=== PATIENT | male | born 1995 | race African-American/Black ===

== ENCOUNTER 2021-06-02 02:31 | Inpatient (IN) | payer SELFPAY ==
[2021-06-02] VITALS (9 sets, daily range): BP systolic 117–145; BP diastolic 55–92; PULSE 50–80; RESP 15–22; TEMP 36.6–37.4; O2SAT 97–100; BMI 23.1
[2021-06-02 03:05] LABS: Add Urine Microscopic? NO; Charge for UA Resulting for Rev
[2021-06-02 03:07] LABS: Bilirubin Urine Neg (Negative); Blood Urine Neg (Negative); Glucose Urine UA Norm (Normal); Ketones Urine Negative (Negative); Leukocyte Esterase Urine Negative (Negative); Nitrate Urine Negative (Negative); Protein Urine Neg (Negative); Urine Appearance Clear (CLEAR); Urine Color Straw (Yellow); Urobilinogen Urine Norm (Negative); pH Urine 5 (5-7)
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
[2021-06-02 03:12] LABS: Basophils % 0.3 %; Hematocrit 43.6 % (42.0-52.0); Hemoglobin 14.1 g/dL (11.7-16.6); Lymphocytes # 0.9 10^3/uL (0.8-4.8); Lymphocytes % 12.6 %; Mean Corpuscular HGB Conc 32.3 g/dL (30.0-36.0); Mean Corpuscular Hemoglobin 29.6 pg (28.0-34.0); Mean Corpuscular Volume 91.6 fl (80-94); Mean Platelet Volume 10.4 fL (7.4-10.4); Monocytes # 0.3 10^3/uL (0.2-0.9); Neutrophils # 6.16 10^3/uL (1.8-7.7); Neutrophils % 82.8 %; Nucleated Red Blood Cells % 0 %; Platelet Count 183 10^3/cmm (130-400); Red Blood Count 4.76 10^6/uL (4.1-5.3); White Blood Count 7.4 10^3/uL (4.0-10.0)
[2021-06-02] MEDS: LORazepam 2 mg Tablet PO (03:15)
[2021-06-02 03:16] LABS: Amphetamines Screen Urine Negative (Negative); Barbiturates Screen Urine Negative (Negative); Benzodiazepines Screen Urine Negative (Negative); Cocaine Screen Urine Negative (Negative); Opiate Screen Urine Negative (Negative); PCP Screen Urine Negative (Negative); THC Screen Urine Positive (Negative)
[2021-06-02 03:29] LABS: Alanine Aminotransferase 12 U/L (0-41); Albumin Level 4.5 g/dL (3.5-5.2); Alcohol Level 31 mg/dL (0-10); Alkaline Phosphatase 60 IU/L (40-130); Anion Gap 16.2 (5-19); Aspartate Amino Transferase 17 U/L (0-40); Blood Urea Nitrogen 14 mg/dL (6-20); Calcium 9.6 mg/dL (8.5-10.5); Carbon Dioxide 23 mmol/L (22-29); Chloride 106 mmol/L (98-107); Glomerular Filtration Rate 122.5 mL/min (90-130); Glucose 95 mg/dL (65-115); Osmolality Calculated 292 mOsm/kg (285-295); Potassium 4.2 mmol/L (3.5-5.1); Sodium 141 mmol/L (136-145); Total Bilirubin 0.5 mg/dL (0.15-1.2); Total Protein 7.5 g/dL (6.6-8.7)
[2021-06-02] MEDS: LORazepam 2 mg/mL INJ 1 mL IVP (03:30)
[2021-06-02 03:31] LABS: Acetaminophen < 5.0 ug/mL (10-30)
--- NOTE | 2021-06-02 03:38 | ECG_ITS ---
[facility] Test Date: 2021-06-02 Pat Name: Jonh Arnold Department: Room: 151 Gender: Male [employer]: : 1995 Requested By: Manuel Chaudhry Order Number: [id number] Yesenia MD: Sukumar Katz M.D. Measurements Intervals [place] Rate: 60 P: 66 LA: 163 QRS: 60 QRSD: 92 T: 45 QT: 371 QTc: 372 Interpretive Statements SINUS RHYTHM WITH OCCASIONAL VENTRICULAR PREMATURE COMPLEXES No previous ECG available for comparison Electronically Signed On 06-02-2021 21:43:04 CDT by Sukumar Katz M.D. [email or web address]
[2021-06-02] MEDS: valproic acid 500 mg/5 mL SDV 1500 MG IV (03:45)
[2021-06-02] MEDS: sodium chloride 0.9% 500 ML 999 ML IV (03:46)
[2021-06-02] MEDS: sodium chloride 0.9% (100 ml) 100 ML (03:46)
[2021-06-02] MEDS: divalproex ER 500 mg Tablet (24H) 1000 MG PO (09:01)
--- NOTE | 2021-06-02 09:18 | PC.NURSE ---
PAIN ASSESSMENT 0600; CLIENTS PAIN ASSESSMENT WAS DUE AT 0600AM. CLIENT DID NOT ARRIVE ON THE UNIT UNTIL 0730AM. NOTIFIED STAFF IN THE ER THAT CLIENTS PAIN ASSESSMENT WAS DUE AT 0600AM. UNABLE TO DOCUMENT CLIENTS PAIN LEVEL AT 0600AM BECAUSE CLIENT WAS NOT UNDER MY CARE AT THAT TIME.
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
[2021-06-02] MEDS: hyDROXYzine 25 mg Capsule 50 MG PO (11:31)
--- NOTE | 2021-06-02 11:31 | PC.NURSE ---
PRN VISTARIL 50 MG GIVEN PO PER PT C/O STATED ANXIETY
[2021-06-02] MEDS: LORazepam 2 mg/mL INJ 1 mL (12:48)
--- NOTE | 2021-06-02 13:51 | PC.NURSE ---
admitted into room 106 from npu at 1330 after rapid response was called due to seizure.pt is a little drowsy. alert and oriented x 4.sr with occas pvc's on monitor.states has a hx of epilepsy and schizophrenia and has not been taking his medications for past 3 months.oriented to room environment.
[2021-06-02] MEDS: amoxicillin-clav 875-125 mg Tablet 1 TAB PO (14:14)
[2021-06-02] MEDS: acetaminophen 325 mg Tablet 650 MG PO (14:14)
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
[2021-06-02] MEDS: divalproex DR 500 mg Tablet 1000 MG PO (14:31)
[2021-06-02] MEDS: nicotine 2 mg Gum BUCCAL (14:31)
[2021-06-02] MEDS: LORazepam 2 mg/mL INJ 1 mL 1 MG IVP (14:32)
--- NOTE | 2021-06-02 18:36 | PC.NURSE ---
pt received 1 mg ativan iv for anxiety and has slept most of shift.no further seizure activity.
[2021-06-02] MEDS: OLANZapine 5 mg TABLET PO (20:56)
[2021-06-03] VITALS (33 sets, daily range): BP systolic 106–153; BP diastolic 55–84; PULSE 61–83; RESP 18–24; TEMP 36.6–37.1; O2SAT 99–100
--- NOTE | 2021-06-03 04:58 | PC.NURSE ---
Frequent safety and comfort rounds continue. Orders and/or nursing care completed as indicated. Patient monitored for response to intervention and treatment(s). Patient given ativan on previous shift and slept most of the night. Easily aroused Education provided includes medication compliance. Patient and/or outside sales representative verbalized understanding. Will continue to monitor.
[2021-06-03] MEDS: divalproex DR 500 mg Tablet 1000 MG PO ×2 (05:20→14:33)
[2021-06-03] MEDS: amoxicillin-clav 875-125 mg Tablet 1 TAB PO (08:46)
[2021-06-03] MEDS: LORazepam 2 mg/mL INJ 1 mL 1 MG IVP ×2 (08:55→14:54)
--- NOTE | 2021-06-03 09:10 | PC.PHAR ---
pt states he is taking no rx or otc medications-pt states he was taking olanzapine 10mg, divalproex 500mg, paxil 30mg and prazosin 2mg pt states he hasnt had these medication for 3 months-ext med history shows last filled 06/19/2020
--- NOTE | 2021-06-03 10:00 | PC.NURSE ---
Pt lying in bed resting and texting on cell phone. Pt behavior calm and cooperative. Pt had no c/o pain or discomfort at the present time. No needs voiced. Call light in reach. Will continue to monitor.
--- NOTE | 2021-06-03 15:24 | PC.NURSE ---
Pt reports IV catheter pulled out. J loop found in pts bed. New IV started in right forearm. 20 gauge, secured with venaguard. Flushed with 10ml NS. Pt stephen well.
--- NOTE | 2021-06-03 17:37 | P.PN_ITS ---
Subjective Subjective: Interval history: Patient was seen and examined this morning, no acute events overnight.Vitals reviewed.Am labs not done today. Medications: Reviewed: Yes Vitals/I&O/Wt Last Vital Signs Temp 98.5 F 06/03/21 17:00 Pulse 83 06/03/21 17:00 Resp 18 06/03/21 17:00 BP 153/84 06/03/21 17:00 Pulse Ox 99 06/03/21 17:00 06/03/21 06/03/21 06/03/21 06:59 14:59 22:59 Intake Total 0 / 0 0 / 0 Balance 0 / 0 0 / 0 Weight last 48 hrs Weight 79.379 kg Physical Exam Const: COMMON NORMALS: patient oriented x3 HENMT: COMMON NORMALS: normocephalic and atraumatic HEAD & SCALP: normocephalic and atraumatic Resp: COMMON NORMALS: clear to auscultation bilaterally AUSCULTATION: clear to auscultation bilaterally Cardio: COMMON NORMALS: regular rate, regular rhythm, S1 normal heart sound p resent, S2 normal heart sound present, No gallops present (Cardio), No murmurs present (Cardio), No rub (Cardio) and Peripheral pulses 2+ throughout RATE: regular rate RHYTHM: regular rhythm HEART SOUNDS: S1 normal heart sound present and S2 normal heart sound present PERIPHERAL PULSES: Peripheral pulses 2+ throughout GI: COMMON NORMALS: Normal to inspection, nondistended, normoactive bowel sounds present, Soft to palpation, non-tender, No hepatosplenomegaly present and no masses AUSCULTATION: Yes normoactive bowel sounds PALPATION: Yes Soft to palpation and Yes No hepatosplenomegaly present RECTAL EXAM: Yes deferred Extremity: COMMON NORMALS: no clubbing, cyanosis or edema and no pedal edema Neuro: COMMON NORMALS: patient oriented x3 Data : 06/02/21 03:08 06/02/21 03:08 A&P Assessment and plan (1) Grand mal seizure disorder: - Depakote 1000 mg q12 h daily -Ativan for breakthrough seizures -Aspiration precautions, seizure precautions Status: Acute (2) Anxiety and depression: -Continue his Zyprexa, he also takes -Plan to restart Lexapro -Currently denies suicidal ideation, denies homicidal ideation, does feel down depressed and sad, with feelings of hopelessness, but has good insight, good judgment, is not imminent threat to himself or others, is rational Status: Acute (3) Schizoaffective disorder: -Continue Zyprexa Status: Acute Attestations Medical Necessity Statement*: Per Primary Team. Coding Level of Care Code Acute Batch Unloader for [facility] Fwd Diagnoses Grand mal seizure disorder G40.409 Anxiety and depression F41.9; F32.9 Schizoaffective disorder F25.9
[2021-06-03] MEDS: hyDROXYzine 25 mg Capsule 50 MG PO (17:49)
--- NOTE | 2021-06-03 18:46 | P.PN_ITS ---
Subjective NPU Subjective: Interval history: I with the patient in his room. He says that he is still having suicidal thoughts minutes at a time thoughout the day. He does not feel he will act on them in the hospital, but is concerned that they would worsen at home. His mood is still depressed. We discussed the possibility of him returning to the neuropsychiatric unit. He feels that this will give him the support he needs to address the suicidal thoughts. Mental Status Exam MSE Comments: This is a well-nourished well-developed -Citizen [place] male with adequate grooming and limited eye contact. Laying on his side in bed on the cardiac care unit. No abnormal movements or tics noted. Some psychomotor retardation. Apathetic but cooperative with exam in no acute distress. Speech is normal rate and volume. Mood described as somewhat depressed, affect is bland. Thought process linear. Thought content: Patient describes some fleeting suicidal but not homicidal ideation. There were no delusions reported or noted. He reports a history of auditory hallucinations but none currently. No visual hallucinations Attention and concentration were impaired and memory was unreliable but none were formally tested. He is semi-alert and oriented x3. Insight and judgment appear limited and impulse control is impaired. Vitals/I&O/Wt Last Vital Signs Temp 98.3 F 06/03/21 19:34 Pulse 61 06/03/21 19:34 Resp 24 H 06/03/21 19:34 BP 106/55 06/03/21 19:34 Pulse Ox 100 06/03/21 19:34 06/03/21 06/03/21 06/03/21 06:59 14:59 22:59 Intake Total 0 / 0 0 / 0 Balance 0 / 0 0 / 0 Weight last 48 hrs Weight 79.379 kg Data NPU : 06/02/21 03:08 06/02/21 03:08 A&P Assessment and plan (1) Schizoaffective disorder: Status: Acute Qualifiers: Schizoaffective disorder type: depressive Qualified Code(s): F25.1 - Schizoaffective disorder, depressive type (2) Anxiety and depression: Status: Acute (3) Suicidal ideation: Status: Acute (4) Grand mal seizure disorder: Status: Acute (5) Cannabis abuse: Status: Acute (6) Alcohol use: Status: Acute Additional A&P Information Pt may transfer to the NPU for further psychiatric care when medically stable. Continue Zyprexa. Involuntary Hold Information 96 Hour Hold: 96 Hour Involuntary Admission: No Attestations NPU Medical Necessity Statement*: Per hospitalist. Coding Level of Care Code Acute Strand Galvanizer for [facility] Fwd Diagnoses Schizoaffective disorder F25.1 Schizoaffective disorder type: depressive Anxiety and depression F41.9; F32.9 Suicidal ideation R45.851 Grand mal seizure disorder G40.409 Cannabis abuse F12.10 Alcohol use Z72.89
[2021-06-04] VITALS (74 sets, daily range): BP systolic 106–130; BP diastolic 55–70; PULSE 65; RESP 14; O2SAT 99
[2021-06-04] MEDS: divalproex DR 500 mg Tablet 1000 MG PO (03:33)
--- NOTE | 2021-06-04 04:56 | PC.NURSE ---
Frequent safety and comfort rounds continue. Orders and/or nursing care completed as indicated. Patient monitored for response to intervention and treatment. Education provided includes medications etc. Patient and/or manufacturers representative verbalize understanding. Will continue to monitor.
[2021-06-04] MEDS: LORazepam 2 mg/mL INJ 1 mL 1 MG IVP (08:49)
--- NOTE | 2021-06-04 09:43 | PM.NPN ---
Subjective NPU Subjective: Interval history: I met with the patient for a few minutes this morning. He was ambivalent about coming to the psychiatric unit. At one point he said he was still having fleeting thoughts of suicide and might have trouble keeping himself safe. At another point he said that he would do better if he left the hospital and got started doing things he needs to do for the next phase of his life. He denied active suicidal intentions to kill himself. He has no command hallucinations, though he does hear voices when he sits quietly alone. This is his baseline level of functioning. The patient told me more about his recent history. His 's mother has told him he cannot come back to the apartment. If he tries, she will call the police and they will all get evicted. He says he is not sure why she is taking this action. We talked about where he might go next in life. He is thinking about moving back to [place]. He has no money currently, but feels that his parents or one of his siblings would give him money to get there. He has close friends he can connect with once there. His parents are in the process of moving from [place] to [place], and he had considered going to stay with them there. He is still going to think about that possibility. Mental Status Exam MSE Comments: This is a well-nourished well-developed -[place] male with adequate grooming and limited eye contact. Laying on his side in bed on the cardiac care unit. No abnormal movements or tics noted. He is restless today. He is more lively but more ambivalent. Still cooperative with exam in no acute distress. Speech is normal rate and volume. Mood described as somewhat okay, affect is bland. Thought process linear. Thought content: Patient describes some fleeting suicidal but not homicidal ideation. There were no delusions reported or noted. He reports auditory hallucinations when he is alone. No visual hallucinations Attention and concentration were improved and memory was better but none were formally tested. He is alert and oriented x3. Insight and judgment appear improved and impulse control is improved. Vitals/I&O/Wt Last Vital Signs Temp 98.3 F 06/03/21 19:34 Pulse 65 06/04/21 08:21 Resp 14 06/04/21 08:21 BP 130/70 06/04/21 08:21 Pulse Ox 99 06/04/21 08:21 06/03/21 06/04/21 06/04/21 22:59 06:59 14:59 Intake Total 0 / 0 Balance 0 / 0 Data NPU : 06/02/21 03:08 06/02/21 03:08 A&P Assessment and plan (1) Schizoaffective disorder: Status: Acute Qualifiers: Schizoaffective disorder type: depressive Qualified Code(s): F25.1 - Schizoaffective disorder, depressive type (2) Anxiety and depression: Status: Acute (3) Suicidal ideation: Status: Acute (4) Cannabis abuse: Status: Acute (5) Alcohol use: Status: Acute (6) Grand mal seizure disorder: Status: Acute Additional A&P Information I encouraged the patient to come to the Neuropsych Unit, because of my concern that he would decompensate without a clearly delineated and well thought through plan. He is considering that option, but also feels that he can make good decisions on his own. I do not feel that he would decompensate acutely should he leave the hospital. He also knows how to get himself back here, should he find himself in distress. Involuntary Hold Information 96 Hour Hold: 96 Hour Involuntary Admission: No Attestations NPU Medical Necessity Statement*: Per hospitalist Coding Level of Care Code Acute Safe Deposit Box Rental Clerk for [facility] Fw Diagnoses Schizoaffective disorder F25.1 Schizoaffective disorder type: depressive Anxiety and depression F41.9; F32.9 Suicidal ideation R45.851 Cannabis abuse F12.10 Alcohol use Z72.89 Grand mal seizure disorder G40.409
--- NOTE | 2021-06-04 11:05 | P.PN_ITS ---
Subjective Subjective: Interval history: Patient was seen and examined this morning, no acute events overnight.no fresh seizure episode. Medications: Reviewed: Yes Vitals/I&O/Wt Last Vital Signs Temp 98.3 F 06/03/21 19:34 Pulse 65 06/04/21 08:21 Resp 14 06/04/21 08:21 BP 130/70 06/04/21 08:21 Pulse Ox 99 06/04/21 08:21 06/03/21 06/04/21 06/04/21 22:59 06:59 14:59 Intake Total 0 / 0 Balance 0 / 0 Physical Exam Const: COMMON NORMALS: patient oriented x3 HENMT: COMMON NORMALS: normocephalic and atraumatic HEAD & SCALP: normocephalic and atraumatic Resp: COMMON NORMALS: clear to auscultation bilaterally AUSCULTATION: clear to auscultation bilaterally Cardio: COMMON NORMALS: regular rate, regular rhythm, S1 normal heart sound present, S2 normal heart sound present, No gallops present (Cardio), No murmurs present (Cardio), No rub (Cardio) and Peripheral pulses 2+ throughout RATE: regular rate RHYTHM: regular rhythm HEART SOUNDS: S1 normal heart sound present and S2 normal heart sound present PERIPHERAL PULSES: Peripheral pulses 2+ throughout GI: COMMON NORMALS: Normal to inspection, nondistended, normoactive bowel sounds present, Soft to palpation, non-tender, No hepatosplenomegaly present and no masses AUSCULTATION: Yes normoactive bowel sounds PALPATION: Yes Soft to palpation and Yes No hepatosplenomegaly present RECTAL EXAM: Yes deferred Extremity: COMMON NORMALS: no clubbing, cyanosis or edema and no pedal edema Neuro: COMMON NORMALS: patient oriented x3 Data : 06/02/21 03:08 06/02/21 03:08 A&P Assessment and plan (1) Grand mal seizure disorder: - Depakote 1000 mg q12 h daily -Ativan for breakthrough seizures -Aspiration precautions, seizure precautions Status: Acute (2) Anxiety and depression: -Continue his Zyprexa, he also takes -Plan to restart Lexapro -Currently denies suicidal ideation, denies homicidal ideation, does feel down depressed and sad, with feelings of hopelessness, but has good insight, good judgment, is not imminent threat to himself or others, is rational Status: Acute (3) Schizoaffective disorder: -Continue Zyprexa Status: Acute Qualifiers: Schizoaffective disorder type: depressive Qualified Code(s): F25.1 - Schizoaffective disorder, depressive type Attestations Medical Necessity Statement*: Per Primary team Coding Level of Care Code Acute Shell Freezing Machine Operator for [facility] Fw Diagnoses Grand mal seizure disorder G40.409 Anxiety and depression F41.9; F32.9 Schizoaffective disorder F25.1 Schizoaffective disorder type: depressive
[2021-06-04] MEDS: nicotine 2 mg Gum BUCCAL (11:06)
--- NOTE | 2021-06-04 13:12 | PC.NURSE ---
Pt signed AMA paper and left hospital. and notified.
--- NOTE | 2021-06-05 10:54 | PC.SOCIAL ---
attempted to call patient for hospital follow up call, patient answered, then the phone went blank. attempted to call patient back with no answer.
--- NOTE | 2021-06-05 14:05 | PC.SOCIAL ---
follow up call made. spoke with patient. policy writer gave patient information to see [facility]. policy writer let the patient know that they see walk ins [phone] on Tuesdays and . [facility]'s number was provided to patient.
== END 2021-06-04 13:10 | disposition left against medical advice (07) | DRG 101 ==
LOC: ER 05:05 → NP 08:33 → CSU 12:58
PROVIDERS: Admitting Provider Psychiatry & Neurology Psychiatry; Emergency Provider Emergency Medicine; Visit Provider Internal Medicine
DX: G40.409 Other generalized epilepsy and epileptic syndromes, not intractable, without status epilepticus (principal); R45.851 Suicidal ideations; F10.980 Alcohol use, unspecified with alcohol-induced anxiety disorder; F25.9 Schizoaffective disorder, unspecified; F32.9 Major depressive disorder, single episode, unspecified; F41.9 Anxiety disorder, unspecified; F12.180 Cannabis abuse with cannabis-induced anxiety disorder; Z66 Do not resuscitate; Z53.29 Procedure and treatment not carried out because of patient's decision for other reasons
CPT/HCPCS: 80053; 80306; 80307; 81003; 85025; 93005; 96374; 96375; 99285; J2060; J7040

== ENCOUNTER 2021-08-13 18:03 | Emergency (ER) | payer MEDICAID, SELFPAY ==
[2021-08-13] MEDS: LORazepam 2 mg/mL INJ 1 mL (18:15)
[2021-08-13 18:23] VITALS: BP 153/101; PULSE 93; RESP 18; TEMP 37.1; O2SAT 95; BMI 23.7
--- NOTE | 2021-08-13 18:26 | W.ED.SEIZURE ---
HPI - Seizure General: Chief Complaint: Seizure Stated Complaint: SEIZURE Time Seen by Provider: 08/13/21 18:19 Source: patient and EMS Mode of arrival: EMS Limitations: no limitations History of Present Illness: HPI Narrative: 25-year-old male has a long history of seizures states that he has been out of his Depakote for 2 weeks and is currently in senior care. Patient states he had a seizure today he had a supposed seizure here when he arrived by EMS it appeared to be a pseudoseizure as a stoplight told him to stop and he was just flopping around. Patient denies any headache he states that he has been out of his Depakote he denies any worsening improving factors. Associated symptoms: Deny chest pain, chills or fever(s) Review of Systems Const: Denies: fever(s), chills, body aches or change in appetite Eyes: Denies: blurry vision or eye discomfort ENMT: Denies: throat pain or dental pain Card: Denies: chest pain Resp: Denies: dyspnea GI: Denies: abdominal pain, nausea, vomiting or diarrhea : Denies: dysuria Musc: Denies: neck pain or back pain Skin/Breast: Denies: rash Neuro: Reports: seizure-like activity Psych: Denies: depression Tramaine/Lymph: Denies: easy bruising All/Imm: Denies: urticaria PFSH ED PFSH: Medical History Anxiety and depression Grand mal seizure disorder Rotator cuff arthropathy Schizoaffective disorder Social History Smoking and tobacco status: current every day smoker Alcohol intake: current Alcohol intake frequency: 0-2 Drinks per Day Physical Exam Const: COMMON NORMALS: no acute distress, patient oriented x3 and healthy appearing HENMT: COMMON NORMALS: normocephalic and atraumatic HEAD & SCALP: normocephalic and atraumatic Eye: COMMON NORMALS: Equal, round and reactive pupils present and EOMs intact bilaterally PUPIL: Yes Equal, round and reactive pupils present Neck/C-Spine: COMMON NORMALS: full ROM and supple Chest: COMMONS NORMALS: normal inspection of the chest and normal palpation of entire chest wall Resp: COMMON NORMALS: normal respiratory effort, No retractions, No use of accessory muscles and clear to auscultation bilaterally AUSCULTATION: clear to auscultation bilaterally Cardio: COMMON NORMALS: regular rate, regular rhythm and No murmurs present (Cardio) RATE: regular rate RHYTHM: regular rhythm GI: COMMON NORMALS: Normal to inspection, nondistended, normoactive bowel sounds present, Soft to palpation, non-tender and no masses PALPATION: Yes Soft to palpation Extremity: COMMON NORMALS: normal to inspection and full ROM Neuro: COMMON NORMALS: patient oriented x3, moves all extremities and no focal motor deficits Psych: COMMON NORMALS: mental status grossly normal, Normal thought process present and cooperative THOUGHT PROCESS: Normal thought process present Skin: COMMON NORMALS: no rashes or lesions noted and no wounds GENERAL SKIN EXAM: no rashes or lesions noted Course Vital Signs: Vital signs: Vital Signs Temperature 98.7 F 08/13/21 18:23 Pulse Rate 63 08/13/21 20:05 Respiratory Rate 16 08/13/21 20:05 Blood Pressure 136/65 08/13/21 20:05 Pulse Oximetry 95 08/13/21 20:05 MDM - Seizure MDM Narrative: Medical decision making narrative: Patient presents here with a seizure likely due to being out of his Depakote did load him with Depakote he has been seizure-free here he had a long history of seizures he does not need a CT scan of his head we will refill his Depakote for him he is discharged back into police custody Discharge Plan Discharge Patient Disposition: Home Clinical Impression: Generalized seizure Condition: Stable Prescriptions: New Depakote 500 mg tablet,delayed release (DR/EC) 500 mg PO BID Qty: 60 RF: 0 Discontinued divalproex 500 mg Tablet,Delayed Release (Dr/Ec) 1,000 mg PO Q12H 30 Days Qty: 120 RF: 3 Discharge Orders: Discharge ED (Routine); Ordered 08/13/21 Ordered By: Anjel Barkley Discharge Diet: Advance as tolerated Discharge Activity: Resume usual activity Patient Instructions: Recurrent Seizures in Adults (ED) Coding Level of Care Code ED Stationary Equipment Mechanic for Ashley Fwd Exam Comprehensive
[2021-08-13] MEDS: divalproex ER 500 mg Tablet (24H) 1000 MG PO (18:50)
[2021-08-13] MEDS: LORazepam 2 mg/mL INJ 1 mL 1 MG IVP (19:05)
--- NOTE | 2021-08-13 19:53 | PC.NURSE ---
at 1905 pt had another seizure DR gallardo notifed
[2021-08-13 20:05] VITALS: BP 136/65; PULSE 63; RESP 16; O2SAT 95
[2021-08-13 21:10] LABS: Valproic Acid Level 2.8 ug/mL (50-100)
== END 2021-08-13 20:07 | disposition home or self-care (01) ==
PROVIDERS: Emergency Provider Emergency Medicine
DX: G40.409 Other generalized epilepsy and epileptic syndromes, not intractable, without status epilepticus (principal); F17.210 Nicotine dependence, cigarettes, uncomplicated
CPT/HCPCS: 80164; 96374; 99283; J2060

== ENCOUNTER 2021-08-21 00:44 | Emergency (ER) | payer MEDICAID, SELFPAY ==
[2021-08-21 00:45] VITALS: BMI 23.1
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
--- NOTE | 2021-08-21 00:58 | XRR_ITS ---
PROCEDURE INFORMATION: Exam: XR Right Shoulder Exam date and time: 08/21/2021 12:58 AM Age: 26 years old Clinical indication: Pain; Shoulder; Right; Additional info: Pain, seizure, injury TECHNIQUE: Imaging protocol: XR Right shoulder. Views: 2 or more views. COMPARISON: No relevant prior studies available. FINDINGS: Bones/joints: No acute fracture or dislocation. Soft tissues: Normal. XR/XR shoulder RT min 2V* [id number] IMPRESSION: No acute fracture or dislocation.
[2021-08-21] MEDS: HYDROcodone-acetaminophen 5-325 mg Tablet 1 TAB PO (01:09)
[2021-08-21] MEDS: LORazepam 2 mg/mL INJ 1 mL 1 MG IVP (01:10)
[2021-08-21 01:30] LABS: Basophils % 0.3 %; Eosinophils # 0.1 10^3/uL (0.0-0.8); Eosinophils % 0.8 %; Hematocrit 41.8 % (42.0-52.0); Hemoglobin 13.9 g/dL (11.7-16.6); Lymphocytes # 2.8 10^3/uL (0.8-4.8); Lymphocytes % 46.1 %; Mean Corpuscular HGB Conc 33.3 g/dL (30.0-36.0); Mean Corpuscular Volume 90.1 fl (80-94); Mean Platelet Volume 10.5 fL (7.4-10.4); Monocytes # 0.5 10^3/uL (0.2-0.9); Monocytes % 8.2 %; Neutrophils # 2.69 10^3/uL (1.8-7.7); Neutrophils % 44.4 %; Nucleated Red Blood Cells % 0 %; Platelet Count 194 10^3/cmm (130-400); Red Blood Count 4.64 10^6/uL (4.1-5.3); White Blood Count 6.1 10^3/uL (4.0-10.0)
[2021-08-21 01:47] VITALS: BP 153/100; PULSE 83; RESP 21; O2SAT 97
[2021-08-21 02:03] LABS: Valproic Acid Level 68.4 ug/mL (50-100)
[2021-08-21 02:27] VITALS: BP 157/107; PULSE 82; RESP 12; O2SAT 99
== END 2021-08-21 02:29 | disposition home or self-care (01) ==
PROVIDERS: Emergency Provider Nurse Practitioner Family
DX: G40.909 Epilepsy, unspecified, not intractable, without status epilepticus (principal); S46.911A Strain of unspecified muscle, fascia and tendon at shoulder and upper arm level, right arm, initial encounter; F17.210 Nicotine dependence, cigarettes, uncomplicated; X58.XXXA Exposure to other specified factors, initial encounter
CPT/HCPCS: 73030; 80164; 85025; 96374; 99284; J2060

== ENCOUNTER 2021-08-29 21:51 | Emergency (ER) | payer MEDICAID, SELFPAY ==
--- NOTE | 2021-08-29 22:01 | W.ED.SEIZURE ---
HPI - Seizure General: Chief Complaint: Seizure Stated Complaint: SEIZURE Time Seen by Provider: 08/29/21 21:52 Source: patient and EMS Mode of arrival: EMS Limitations: no limitations History of Present Illness: HPI Narrative: 26-year-old male is here from group home has been here multiple times since being incarcerated for seizures he has a long seizure history takes Depakote for them supposed been taking Depakote at the group home. He also has questions of possible pseudoseizures. When patient first arrived here he was having an active seizure but never stopped breathing and once he woke up he had no postictal. Was able to give me a full history and remembered who I was from seen previously. Seizure History: Yes Associated symptoms: Deny chest pain, chills or fever(s) Review of Systems Const: Denies: fever(s), chills, body aches or change in appetite Eyes: Denies: blurry vision or eye discomfort ENMT: Denies: throat pain or dental pain Card: Denies: chest pain Resp: Denies: dyspnea GI: Denies: abdominal pain, nausea, vomiting or diarrhea : Denies: dysuria Musc: Denies: neck pain or back pain Skin/Breast: Denies: rash Neuro: Denies: headache(s) Psych: Denies: depression Tramaine/Lymph: Denies: easy bruising All/Imm: Denies: urticaria PFSH ED PFSH: Medical History Anxiety and depression Grand mal seizure disorder Rotator cuff arthropathy Schizoaffective disorder Social History Smoking and tobacco status: current every day smoker Alcohol intake: current Alcohol intake frequency: 0-2 Drinks per Day Physical Exam Const: COMMON NORMALS: no acute distress, patient oriented x3 and healthy appearing HENMT: COMMON NORMALS: normocephalic and atraumatic HEAD & SCALP: normocephalic and atraumatic Eye: COMMON NORMALS: Equal, round and reactive pupils present and EOMs intact bilaterally PUPIL: Yes Equal, round and reactive pupils present Neck/C-Spine: COMMON NORMALS: full ROM and supple Chest: COMMONS NORMALS: normal inspection of the chest and normal palpation of entire chest wall Resp: COMMON NORMALS: normal respiratory effort, No retractions, No use of accessory muscles and clear to auscultation bilaterally AUSCULTATION: clear to auscultation bilaterally Cardio: COMMON NORMALS: regular rate, regular rhythm and No murmurs present (Cardio) RATE: regular rate RHYTHM: regular rhythm GI: COMMON NORMALS: Normal to inspection, nondistended, normoactive bowel sounds present, Soft to palpation, non-tender and no masses PALPATION: Yes Soft to palpation Extremity: COMMON NORMALS: normal to inspection and full ROM Neuro: COMMON NORMALS: patient oriented x3, moves all extremities and no focal motor deficits Psych: COMMON NORMALS: mental status grossly normal, Normal thought process present and cooperative THOUGHT PROCESS: Normal thought process present Skin: COMMON NORMALS: no rashes or lesions noted and no wounds GENERAL SKIN EXAM: no rashes or lesions noted Course Vital Signs: Vital signs: Vital Signs Temperature 98.2 F 08/29/21 23:41 Pulse Rate 109 H 08/29/21 23:41 Respiratory Rate 16 08/29/21 23:41 Blood Pressure 137/86 08/29/21 23:41 Pulse Oximetry 100 08/29/21 23:41 MDM - Seizure MDM Narrative: Medical decision making narrative: Patient presents here with seizure but is mainly pseudoseizures he had multiple supposed seizures here and he wakes up immediately never stops breathing is able answer all the questions and has no postictal. Patient is well-appearing here he stable for discharge back into police custody work appears normal. Lab Data: Labs: Lab Results 08/29/21 08/29/21 22:19 22:19 Sodium 143 mmol/L mmol/L (136-145) Potassium 4.3 mmol/L mmol/L (3.5-5.1) Chloride 104 mmol/L mmol/L (98-107) Carbon Dioxide 23 mmol/L mmol/L (22-29) Anion Gap 20.3 H (5-19) BUN 12 mg/dL mg/dL (6-20) Creatinine 0.8 mg/dL mg/dL (0.7-1.2) GFR Calculation 139.3 mL/min H mL /min (90-130) Glucose 84 mg/dL mg/dL (65-115) Calculated Osmolal ity 295 mOsm/kg mOsm/ kg (285-295) Calcium 9.4 mg/dL mg/dL (8.5-10.5) Valproic Acid 54.1 ug/mL ug/mL (50-100) Discharge Plan Discharge Patient Disposition: Home Clinical Impression: Generalized seizure Condition: Stable Prescriptions: No Action Depakote 500 mg tablet,delayed release (DR/EC) 500 mg PO BID Qty: 60 RF: 0 Discharge Orders: Discharge ED (Routine); Ordered 08/29/21 Ordered By: Anjel Barkley Discharge Diet: Advance as tolerated Discharge Activity: Resume usual activity Patient Instructions: Recurrent Seizures in Adults (ED) Coding Level of Care Code ED Breaker Tender for Ashley Fwd Exam Comprehensive
[2021-08-29 22:04] VITALS: BP 138/98; PULSE 95; RESP 16; TEMP 36.6; O2SAT 98; BMI 22.4
[2021-08-29] MEDS: LORazepam 2 mg/mL INJ 1 mL IVP ×3 (22:10→23:38)
--- NOTE | 2021-08-29 22:15 | PC.NURSE ---
patient began seizing at approx 2208 . Provider notified and 2 mg Ativan given. Patient continually to seize . 2mg additional ativan given [address] Barkley. Patient stop seizing 2214. Patient in postictal state.
[2021-08-29 22:16] VITALS: BP 163/98; PULSE 107; RESP 16; O2SAT 99
[2021-08-29 22:50] LABS: Blood Urea Nitrogen 12 mg/dL (6-20); Calcium 9.4 mg/dL (8.5-10.5); Carbon Dioxide 23 mmol/L (22-29); Chloride 104 mmol/L (98-107); Glomerular Filtration Rate 139.3 mL/min (90-130); Glucose 84 mg/dL (65-115); Osmolality Calculated 295 mOsm/kg (285-295); Sodium 143 mmol/L (136-145)
[2021-08-29 22:53] LABS: Anion Gap 20.3 (5-19); Potassium 4.3 mmol/L (3.5-5.1)
[2021-08-29 23:19] LABS: Valproic Acid Level 54.1 ug/mL (50-100)
[2021-08-29] MEDS: divalproex DR 500 mg Tablet PO (23:38)
[2021-08-29 23:41] VITALS: BP 137/86; PULSE 109; RESP 16; TEMP 36.8; O2SAT 100
[2021-08-30] MEDS: diphenhydrAMINE 50 mg/mL SDV 1mL IM (01:01)
[2021-08-30] MEDS: haloperidol inj 5 mg/mL INJ 1 mL IM (01:02)
[2021-08-30 01:47] VITALS: BP 134/76; PULSE 76; RESP 16; TEMP 36.7; O2SAT 97
--- NOTE | 2021-08-30 01:47 | PC.NURSE ---
patient sleeping comfortablyin bed upon entry. patient aroused via verbal stimuli. DIscharge vitals obtained and charted. Discharge paperwork given to Dez. Patient in no obvious distress. No seizure like activity noted upon discharge.
[2021-08-30 01:48] VITALS: BP 131/76; PULSE 76; RESP 16; TEMP 36.7; O2SAT 97
== END 2021-08-30 01:50 | disposition home or self-care (01) ==
PROVIDERS: Emergency Provider Emergency Medicine
DX: G40.409 Other generalized epilepsy and epileptic syndromes, not intractable, without status epilepticus (principal); F17.210 Nicotine dependence, cigarettes, uncomplicated
CPT/HCPCS: 80048; 80164; 96372; 96374; 96376; 99284; J1200; J1630; J2060

== ENCOUNTER 2021-08-31 00:39 | Emergency (ER) | payer MEDICAID, SELFPAY ==
[2021-08-31 01:02] VITALS: BP 138/86; PULSE 78; RESP 16; TEMP 36.5; O2SAT 99; BMI 21.1
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
[2021-08-31] MEDS: haloperidol inj 5 mg/mL INJ 1 mL IM (01:42)
[2021-08-31] MEDS: divalproex ER 500 mg Tablet (24H) PO (01:43)
[2021-08-31] MEDS: LORazepam 2 mg/mL INJ 1 mL 1 MG IM (03:25)
--- NOTE | 2021-09-02 15:37 | DCPLANNER ---
woods manager had message to schedule a follow up appointment for patient with Dr. Morrison. woods manager emailed patients information to the neurology clinic. Patients information will be printed and reviewed. Clinic will call patient with appointment information.
--- NOTE | 2021-09-19 08:36 | DCPLANNER ---
apartment community assistant manager was contacted by Karen Anderson at the office of Dr. Morrison, informing business case analyst that clinic has tried to reach patient several times and has not been able to reach patient to schedule a follow up appointment.
== END 2021-08-31 05:06 | disposition home or self-care (01) ==
PROVIDERS: Emergency Provider Physician Assistant
DX: G40.909 Epilepsy, unspecified, not intractable, without status epilepticus (principal); F17.210 Nicotine dependence, cigarettes, uncomplicated
CPT/HCPCS: 70450; 96372; 99283; J1630; J2060

== ENCOUNTER 2021-09-01 23:49 | Emergency (ER) | payer MEDICAID, SELFPAY ==
[2021-09-01 23:58] VITALS: BP 133/83; PULSE 70; RESP 18; TEMP 36.9; O2SAT 100; BMI 23.7
--- NOTE | 2021-09-01 23:59 | W.ED.SEIZURE ---
Documented by User: LORETTA Aguirre 09/02/21 02:08 HPI - Seizure General: Chief Complaint: Seizure Stated Complaint: SEIZURE Time Seen by Provider: 09/01/21 23:59 History of Present Illness: HPI Narrative: 26-year-old male patient came in [facility] for concerns of seizure activity. Patient has possible seizure versus pseudoseizures. Patient was seen yesterday and was increased on his Depakote and started on some Zyprexa. Patient did not receive a dose of his Zyprexa today and only got 1 dose of his Depakote 1000 mg. Patient is alert and responds appropriately to questions. Patient reports some right shoulder discomfort 2. Seizure History: Yes Review of Systems General: Reports: 10 or more systems reviewed and unremarkable except in HPI and below Neuro: Reports: seizure-like activity PFS ED PFSH: Medical History Anxiety and depression Grand mal seizure disorder Rotator cuff arthropathy Schizoaffective disorder Social History Smoking and tobacco status: current every day smoker Alcohol intake: current Alcohol intake frequency: 0-2 Drinks per Day Physical Exam Const: COMMON NORMALS: no acute distress and patient oriented x3 GENERAL APPEARANCE: cooperative HENMT: COMMON NORMALS: normocephalic, TM's normal bilaterally and Normal external nose present HEAD & SCALP: normal to inspection and normocephalic NOSE: Normal external nose present TYMPANIC MEMBRANE: TM's normal bilaterally MOUTH: Normal oral and palatal mucosa present THROAT: posterior oropharynx normal Eye: GENERAL EYE: appearance normal, both eyes and all related structures Neck/C-Spine: COMMON NORMALS: full ROM Lymph: LYMPHATIC: no lymphadenopathy noted Chest: COMMONS NORMALS: normal inspection of the chest Resp: COMMON NORMALS: normal respiratory effort EFFORT & INSPECTION: Yes able to speak in complete sentences Cardio: COMMON NORMALS: regular rate and regular rhythm RATE: regular rate RHYTHM: regular rhythm GI: COMMON NORMALS: non-tender : COMMON NORMALS: Yes no CVA tenderness BLADDER/KIDNEY EXAM: Yes no CVA tenderness Back/Pelvis: COMMON NORMALS: no CVA tenderness and thoracic and lumbar spine normal to inspection Extremity: COMMON NORMALS: normal to inspection Neuro: COMMON NORMALS: patient oriented x3 and moves all extremities Psych: COMMON NORMALS: mental status grossly normal and cooperative Skin: COMMON NORMALS: no rashes or lesions noted GENERAL SKIN EXAM: no rashes or lesions noted Course ED course: 0100, patient had seizure-like activity again. I went in and started talking to the patient and the used cotton tip applicator to the cornea with positive reflex and patient aroused out of seizure immediately. Patient had no post ictal state. Tried to reassure patient that he is stressed due to the holiday and being in skilled nursing. Patient was given 2 mg of Ativan IV, along with 5 of Haldol. Vital Signs: Vital signs: Vital Signs Temperature 98.4 F 09/01/21 23:58 Pulse Rate 85 09/02/21 00:32 Respiratory Rate 14 09/02/21 00:32 Blood Pressure 133/93 09/02/21 00:32 Pulse Oximetry 100 09/02/21 00:32 MDM - Seizure MDM Narrative: Medical decision making narrative: Patient was brought in by EMS from the skilled nursing for concerns of seizure activity. On exam patient was alert and oriented and responds appropriately to questions. Patient did have 2 episodes of seizure-like activity that he recovered from immediately after cessation of shaking. One episode was ceased on my evaluation of corneal reflex. Vital signs were normal. No signs of injury was noted. Differential diagnosis includes but not limited to seizure disorder, pseudoseizures, anxiety, malingering. Patient was treated with 2 mg Ativan and 10 mg of Zyprexa. This ceased the seizures patient had improvement in symptoms. Laboratory values were unremarkable. Patient was discharged back to skilled nursing encouraged to follow-up with primary care or specialist. Patient had not got his Zyprexa today at the skilled nursing which has been ordered yesterday. And patient only got half the dose of Depakote. This may have contributed patient's seizure activity. Lab Data: Labs: Lab Results 09/02/21 00:21 WBC 5.8 10^3/uL 10^3/ uL (4.0-10.0) RBC 5.15 10^6/uL 10^6 /uL (4.1-5.3) Hgb 15.6 g/dL g/dL (11.7-16.6) Hct 48.5 % % (42.0-52.0) MCV 94.2 fl H fl (80-94) MCH 30.3 pg pg (28.0-34.0) MCHC 32.2 g/dL g/dL (30.0-36.0) RDW 13.2 % % (12.1-15.1) Plt Count 153 10^3/cmm 10^3 /cmm (130-400) MPV 11.8 fL H fL (7.4-10.4) Neut % (Auto) 41.7 % % Lymph % (Auto) 46.4 % % [place] % (Auto) 8.8 % % Eos % (Auto) 1.2 % % Baso % (Auto) 0.9 % % Neut # (Auto) 2.43 10^3/uL 10^3 /uL (1.8-7.7) Lymph # (Auto) 2.7 10^3/uL 10^3/ uL (0.8-4.8) [place] # (Auto) 0.5 10^3/uL 10^3/ uL (0.2-0.9) Eos # (Auto) 0.1 10^3/uL 10^3/ uL (0.0-0.8) Baso # (Auto) 0.1 10^3/uL 10^3/ uL (0.0-0.1) Nucleated RBC % (a uto) 0 % % Nucleated RBCs # 0.0 /100WBC /100W BC Discharge Plan Discharge Patient Disposition: Home Clinical Impression: Seizure disorder Schizoaffective disorder Qualifiers: Schizoaffective disorder type: unspecified Qualified Code(s): F25.9 - Schizoaffective disorder, unspecified Pain in right shoulder Qualifiers: Chronicity: unspecified Qualified Code(s): M25.511 - Pain in right shoulder Condition: Stable Prescriptions: New diclofenac sodium 75 mg tablet,delayed release (DR/EC) 75 mg PO BID Qty: 20 RF: 0 No Action Depakote 500 mg tablet,delayed release (DR/EC) 500 mg PO BID Qty: 60 RF: 0 Depakote 500 mg tablet,delayed release (DR/EC) 1,000 mg PO BID Qty: 60 RF: 0 Zyprexa 5 mg tablet 5 mg PO DAILY Qty: 20 RF: 0 Discharge Orders: Discharge ED (Routine); Ordered 09/02/21 Ordered By: Koffi England Discharge Diet: Usual diet Discharge Activity: Increase activity as tolerated Patient Instructions: Nonepileptic Seizures (ED) Activity Restrictions/Additional Instructions: Continue with routine medications as directed. Follow-up with primary care or specialist for further evaluation and treatment. Return to the ER for new concerns. Coding Level of Care Code ED Pegger D[employer] Looms for Chg Fwd Exam Comprehensive Documented by User: Manuel Ramirez DO 09/02/21 02:11 HPI - Seizure General: Chief Complaint: Seizure Stated Complaint: SEIZURE Time Seen by Provider: 09/01/21 23:59 PFSH ED PFSH: Medical History Anxiety and depression Grand mal seizure disorder Rotator cuff arthropathy Schizoaffective disorder Social History Smoking and tobacco status: current every day smoker Alcohol intake: current Alcohol intake frequency: 0-2 Drinks per Day Course Vital Signs: Vital signs: Vital Signs Temperature 98.4 F 09/01/21 23:58 Pulse Rate 85 09/02/21 00:32 Respiratory Rate 14 09/02/21 00:32 Blood Pressure 133/93 09/02/21 00:32 Pulse Oximetry 100 09/02/21 00:32 MDM - Seizure MDM Narrative: Medical decision making narrative: This patient was originally seen by LORETTA Mehta. I agree with his history, evaluation, and treatment. Lab Data: Labs: Lab Results 09/02/21 00:21 WBC 5.8 10^3/uL 10^3/ uL (4.0-10.0) RBC 5.15 10^6/uL 10^6 /uL (4.1-5.3) Hgb 15.6 g/dL g/dL (11.7-16.6) Hct 48.5 % % (42.0-52.0) MCV 94.2 fl H fl (80-94) MCH 30.3 pg pg (28.0-34.0) MCHC 32.2 g/dL g/dL (30.0-36.0) RDW 13.2 % % (12.1-15.1) Plt Count 153 10^3/cmm 10^3 /cmm (130-400) MPV 11.8 fL H fL (7.4-10.4) Neut % (Auto) 41.7 % % Lymph % (Auto) 46.4 % % [place] % (Auto) 8.8 % % Eos % (Auto) 1.2 % % Baso % (Auto) 0.9 % % Neut # (Auto) 2.43 10^3/uL 10^3 /uL (1.8-7.7) Lymph # (Auto) 2.7 10^3/uL 10^3/ uL (0.8-4.8) [place] # (Auto) 0.5 10^3/uL 10^3/ uL (0.2-0.9) Eos # (Auto) 0.1 10^3/uL 10^3/ uL (0.0-0.8) Baso # (Auto) 0.1 10^3/uL 10^3/ uL (0.0-0.1) Nucleated RBC % (a uto) 0 % % Nucleated RBCs # 0.0 /100WBC /100W BC Discharge Plan Discharge Patient Disposition: Home Clinical Impression: Seizure disorder Schizoaffective disorder Qualifiers: Schizoaffective disorder type: unspecified Qualified Code(s): F25.9 - Schizoaffective disorder, unspecified Pain in right shoulder Qualifiers: Chronicity: unspecified Qualified Code(s): M25.511 - Pain in right shoulder Condition: Stable Prescriptions: New diclofenac sodium 75 mg tablet,delayed release (DR/EC) 75 mg PO BID Qty: 20 RF: 0 No Action Depakote 500 mg tablet,delayed release (DR/EC) 500 mg PO BID Qty: 60 RF: 0 Depakote 500 mg tablet,delayed release (DR/EC) 1,000 mg PO BID Qty: 60 RF: 0 Zyprexa 5 mg tablet 5 mg PO DAILY Qty: 20 RF: 0 Discharge Orders: Discharge ED (Routine); Ordered 09/02/21 Ordered By: Koffi England Discharge Diet: Usual diet Discharge Activity: Increase activity as tolerated Patient Instructions: Nonepileptic Seizures (ED) Activity Restrictions/Additional Instructions: Continue with routine medications as directed. Follow-up with primary care or specialist for further evaluation and treatment. Return to the ER for new concerns. Coding Level of Care Code ED Pegger D[employer] Looms for Ashley Fwd Exam Comprehensive
--- NOTE | 2021-09-02 00:07 | XRR_ITS ---
PROCEDURE INFORMATION: Exam: XR Right Shoulder Exam date and time: 09/02/2021 12:07 AM Age: 26 years old Clinical indication: Injury or trauma; Fall; Blunt trauma (contusions or hematomas); Shoulder; Right; Additional info: Pain TECHNIQUE: Imaging protocol: XR Right shoulder. Views: 2 or more views. COMPARISON: CR (CHEST, ) 08/21/2021 1:04 AM FINDINGS: Bones/joints: Normal. Soft tissues: Normal. XR/XR shoulder RT min 2V* [id number] IMPRESSION: No acute findings.
[2021-09-02] MEDS: LORazepam 2 mg/mL INJ 1 mL IVP (00:10)
[2021-09-02] MEDS: ondansetron 2 mg/ML SDV 2 mL 4 MG IVP (00:29)
[2021-09-02] MEDS: OLANZapine 10 mg TABLET PO ×2 (00:29→02:30)
[2021-09-02 00:30] LABS: Basophils # 0.1 10^3/uL (0.0-0.1); Basophils % 0.9 %; Eosinophils # 0.1 10^3/uL (0.0-0.8); Eosinophils % 1.2 %; Hematocrit 48.5 % (42.0-52.0); Hemoglobin 15.6 g/dL (11.7-16.6); Lymphocytes # 2.7 10^3/uL (0.8-4.8); Lymphocytes % 46.4 %; Mean Corpuscular HGB Conc 32.2 g/dL (30.0-36.0); Mean Corpuscular Hemoglobin 30.3 pg (28.0-34.0); Mean Corpuscular Volume 94.2 fl (80-94); Mean Platelet Volume 11.8 fL (7.4-10.4); Monocytes # 0.5 10^3/uL (0.2-0.9); Monocytes % 8.8 %; Neutrophils # 2.43 10^3/uL (1.8-7.7); Neutrophils % 41.7 %; Nucleated Red Blood Cells % 0 %; Platelet Count 153 10^3/cmm (130-400); Red Blood Count 5.15 10^6/uL (4.1-5.3); Red Cell Distribution Width 13.2 % (12.1-15.1); White Blood Count 5.8 10^3/uL (4.0-10.0)
[2021-09-02 00:32] VITALS: BP 133/93; PULSE 85; RESP 14; O2SAT 100
[2021-09-02] MEDS: ketorolac 30 mg/mL INJ 15 MG IVP (02:31)
[2021-09-02 02:57] VITALS: BP 124/84; PULSE 61; RESP 21; O2SAT 100
== END 2021-09-02 03:00 | disposition home or self-care (01) ==
PROVIDERS: Emergency Provider Nurse Practitioner Family
DX: G40.909 Epilepsy, unspecified, not intractable, without status epilepticus (principal); F25.9 Schizoaffective disorder, unspecified; M25.511 Pain in right shoulder; F17.210 Nicotine dependence, cigarettes, uncomplicated
CPT/HCPCS: 73030; 85025; 96374; 96375; 99284; J1885; J2060; J2405

== ENCOUNTER 2021-09-07 23:41 | Emergency (ER) | payer MEDICAID, SELFPAY ==
[2021-09-07 23:42] VITALS: BP 127/83; PULSE 68; RESP 18; O2SAT 100; BMI 23.7
--- NOTE | 2021-09-07 23:53 | W.ED.SEIZURE ---
HPI - Seizure General: Chief Complaint: Seizure Stated Complaint: SEIZURES Time Seen by Provider: 09/07/21 23:46 History of Present Illness: HPI Narrative: Patient is a 26-year-old male that comes to the ED from group home after having a seizure there. Patient has been here in the ED approximately 4-5 times over the last month for same complaint. He also said patient had a seizure that lasted about 20 minutes. They said he fell and hit his head before the seizure occurred. While in the EMS he did have 1 small seizure that was witnessed by EMS staff. Here in the ED patient appears in post ictal state. Patient is alert but does appear in post ictal state. He will answer my questions accordingly. States that he just feels really tired and has little headache. Unsure if he fell and hit head. Patient was given 2000 mg of Depakote by the group home today. They have not been able to give him his Zyprexa they are at the group home because they do not have any currently. Seizure History: Yes Associated symptoms: Deny chest pain, chills or fever(s) Review of Systems Const: Reports: fatigue (post-ictal state); Denies: fever(s) or chills Eyes: Denies: change in vision or eye discomfort ENMT: Denies: throat pain, odynophagia, nasal discharge or nasal congestion Card: Denies: chest pain, palpitations, edema, swelling of feet/ankles, dyspnea on exertion or orthopnea Resp: Denies: dyspnea, productive cough or non-productive cough GI: Denies: abdominal pain, nausea, vomiting, diarrhea, constipation or hematochezia : Denies: flank pain, difficulty urinating, dysuria or hematuria Musc: Denies: neck pain, back pain or extremity swelling Skin/Breast: Denies: rash or new lesions Neuro: Reports: seizure-like activity; Denies: headache(s), numbness in extremities or weakness in extremities PFS ED PFSH: Medical History Anxiety and depression Grand mal seizure disorder Rotator cuff arthropathy Schizoaffective disorder Social History Smoking and tobacco status: current every day smoker Alcohol intake: current Alcohol intake frequency: 0-2 Drinks per Day Physical Exam Const: COMMON NORMALS: no acute distress, patient oriented x3, healthy appearing and alert GENERAL APPEARANCE: cooperative and comfortable HENMT: COMMON NORMALS: normocephalic HEAD & SCALP: normocephalic MOUTH: Normal oral and palatal mucosa present THROAT: posterior oropharynx normal and uvula midline Neck/C-Spine: COMMON NORMALS: supple GENERAL: Yes normal visual inspection Resp: COMMON NORMALS: normal respiratory effort, No retractions, No use of accessory muscles and clear to auscultation bilaterally AUSCULTATION: clear to auscultation bilaterally Cardio: COMMON NORMALS: regular rate, regular rhythm, S1 normal heart sound present, S2 normal heart sound present, No gallops present (Cardio), No clicks present (Cardio), No murmurs present (Cardio) and Peripheral pulses 2+ throughout RATE: regular rate RHYTHM: regular rhythm HEART SOUNDS: S1 normal heart sound present and S2 normal heart sound present PERIPHERAL PULSES: Peripheral pulses 2+ throughout GI: COMMON NORMALS: Normal to inspection, nondistended, normoactive bowel sounds present, Soft to palpation, non-tender and no masses PALPATION: Yes Soft to palpation : COMMON NORMALS: Yes no CVA tenderness BLADDER/KIDNEY EXAM: Yes no CVA tenderness Back/Pelvis: COMMON NORMALS: no CVA tenderness Extremity: COMMON NORMALS: normal to inspection Neuro: COMMON NORMALS: patient oriented x3, CN's II-XII intact bilaterally, moves all extremities and no focal motor deficits SENSORIUM/ORIENTATION: Yes alert SPEECH: speech normal Skin: GENERAL SKIN EXAM: dry skin Course Reevaluation(s): Reevaluation #1: Went in and reevaluated patient after CT scan. Neuro exam was normal and no deficits noted. He is up and alert and eating some food. he said that case management has been in touch with him about getting an appointment set up with neurology for follow-up. I told him about CT scan results showing no acute findings. Patient understood and said he will follow up with neurology at his scheduled appointment. Time: 02:40 Vital Signs: Vital signs: Vital Signs Pulse Rate 68 09/07/21 23:42 Respiratory Rate 18 09/07/21 23:42 Blood Pressure 127/83 09/07/21 23:42 Pulse Oximetry 100 09/07/21 23:42 MDM - Seizure MDM Narrative: Medical decision making narrative: Patient is a 26-year-old male comes to the ED with seizure activity. Long-Term staff said patient hit his head first and then had some seizure-like activity that lasted for almost 20 minutes. Patient currently takes Depakote and is in the process of getting his Zyprexa prescription filled while in the group home. Here in the ED patient was given some Ativan to help with seizures. He had another episode of seizure here in the ED that was short and only lasted about a minute. I then gave patient dose of Tylenol and Benadryl and he was able to do a CT of head. CT of head showed no acute findings. Neuro exam was normal and no deficits noted. He said that case management has been in touch with him about getting an appointment set up with neurology for follow-up. Patient told to continue taking his previously prescribed medications. Return to ED precautions given. Patient understood and agreed with plan. Medical Records: Attestation: I reviewed the patient's medical records. Medical records narrative: Reviewing patient's previous ED visits he has a history of pseudoseizures along with an actual seizure disorder. He is currently on Depakote and Zyprexa. Imaging Data^: CT Head: Attestation: I personally reviewed and interpreted this imaging study as follows: Radiologist's impression: [address] [address] [address] Scan Report Signed Patient: Hillary Arnold Unit #: [id number] : 1995 Age/Sex: 26 / M ADM Date: 09/07/21 Loc: ER Room/Bed: Attending Dr: Ordering Provider/Ordering MD: Isidoro Mayes Date of Service: 09/07/21 Procedure(s): CT head wo con* [id number] Accession Number(s): [id number] Report Number: [id number] PROCEDURE INFORMATION: Exam: CT Head Without Contrast Exam date and time: 09/07/2021 11:52 PM Age: 26 years old Clinical indication: Injury or trauma; Fall; Blunt trauma (contusions or hematomas); Patient HX: Patient had seizure and fell sustaining blow to head on concrete floor. Lethargic. History of seizure disorder. ; Additional info: Fell and hit head, seizure TECHNIQUE: Imaging protocol: Computed tomography of the head without contrast. Radiation optimization: All CT scans at this facility use at least one of these dose optimization techniques: automated exposure control; mA and/or kV adjustment per patient size (includes targeted exams where dose is matched to clinical indication); or iterative reconstruction. COMPARISON: CT head wo con* [id number] 08/31/2021 1:31 AM RADIATION DOSE METRICS: Total DLP (mGy-cm): 980.27 FINDINGS: Brain: No acute infarct or hemorrhage. Cerebral ventricles: No ventriculomegaly. Paranasal sinuses: Paranasal sinuses are clear. No air-fluid level. Mastoid air cells: Visualized mastoid air cells are clear. Bones/joints: No calvarial or skull base fracture. Soft tissues: Unremarkable. CT/CT head wo con* [id number] IMPRESSION: 1. No calvarial or skull base fracture. 2. No acute infarct or hemorrhage. Dictated By: Tristin Marie Signed By: Tristin Marie Signed Date/Time: 09/08/21229 DD/ 195 Discharge Plan Discharge Patient Disposition: Home Clinical Impression: Seizure disorder Condition: Stable Prescriptions: No Action Depakote 500 mg tablet,delayed release (DR/EC) 500 mg PO BID Qty: 60 RF: 0 Depakote 500 mg tablet,delayed release (DR/EC) 1,000 mg PO BID Qty: 60 RF: 0 Zyprexa 5 mg tablet 5 mg PO DAILY Qty: 20 RF: 0 diclofenac sodium 75 mg tablet,delayed release (DR/EC) 75 mg PO BID Qty: 20 RF: 0 Discharge Orders: Discharge ED (Routine); Ordered 09/08/21 Ordered By: Isidoro Mayes Discharge Diet: Regular Discharge Activity: Increase activity as tolerated Patient Instructions: Epilepsy (ED) Activity Restrictions/Additional Instructions: Follow-up with medical provider as directed. Continue taking all previously prescribed medications. Case management should be contacting you in the next several days set up an appointment with neurology. Return to the ER or your medical provider if condition worsens. Please read and understand discharge instructions. Thank you for choosing [facility] for your healthcare needs today. Please realize this is an emergency room and that we are providing you with a medical screening exam and this may not be complete and all inclusive of all the testing and or work up that you may need to determine your ailment or severity of your illness. It is very important that you follow up as instructed or that you return to the Emergency Department should you have concerns or if your condition changes or worsens in any way. Coding Level of Care Code ED Solid Waste Facility Operator for Ashley Aguilera Exam Comprehensive
[2021-09-08] MEDS: LORazepam 2 mg/mL INJ 1 mL IM
[2021-09-08] MEDS: diphenhydrAMINE 50 mg/mL SDV 1mL IM (00:45)
[2021-09-08] MEDS: haloperidol inj 5 mg/mL INJ 1 mL IM (00:45)
[2021-09-08 03:23] VITALS: BP 106/70; PULSE 53; RESP 14; O2SAT 98
--- NOTE | 2021-09-09 17:30 | DCPLANNER ---
Addendum entered by Lexie Rose 09/20/21 06:21: front end manager was contacted by the office of Dr. Morrison stating that the clinic has tried to reach patient several times, and has not been able to reach patient to schedule an appointment. Original Note: front end manager had message to schedule a follow up appointment for patient with neurology. front end manager emailed patients information to the neurology clinic. Patients information will be printed and reviewed. Clinic will call patient with appointment information.
== END 2021-09-08 03:26 | disposition home or self-care (01) ==
PROVIDERS: Emergency Provider Physician Assistant
DX: G40.909 Epilepsy, unspecified, not intractable, without status epilepticus (principal); F17.210 Nicotine dependence, cigarettes, uncomplicated
CPT/HCPCS: 70450; 96372; 99283; J1200; J1630; J2060

== ENCOUNTER 2021-09-26 15:16 | Emergency (ER) | payer MEDICAID, SELFPAY ==
[2021-09-26 15:39] VITALS: BP 142/93; PULSE 64; RESP 16; TEMP 36.9; O2SAT 100; BMI 22.4
--- NOTE | 2021-09-26 16:00 | ECG_ITS ---
[facility] Test Date: 2021-09-26 Pat Name: Hillary Arnold Department: Room: Gender: Male Net Repairer: : 1995 Requested By: Je Cotto Order Number: [id number] Yesenia MD: Ramonita Stokes M.D. Measurements Intervals [place] Rate: 74 P: 63 [place]: 147 QRS: 60 QRSD: 90 T: 34 QT: 339 QTc: 376 Interpretive Statements SINUS RHYTHM Compared to ECG 06/02/2021 03:33:11 Ventricular premature complex(es) no longer present Electronically Signed On 09-26-2021 19:09:25 ART PSYCHOTHERAPIST by Ramonita Stokes M.D. [email or web address]
--- NOTE | 2021-09-26 16:02 | ED_ITS ---
HPI - Seizure General: Chief Complaint: Seizure Stated Complaint: SEIZURE Time Seen by Provider: 09/26/21 15:45 Source: patient and EMS Mode of arrival: EMS Limitations: no limitations History of Present Illness: HPI Narrative: Patient states that he was told he had seizures starting last night intermittently through the evening and in the early this morning. Patient reportedly was given approximately 2000 mg of Depakote last night by caretakers. See nursing assessment. Patient states that he aches all over but denies any particular head injury or headache. See previous ER visit from 3 weeks ago. Patient had negative CT scan of the brain at that time. Patient presently on Depakote at 1000 mg each morning and 1500 mg each evening regularly. He takes no other antiseizure medication. He is allergic to Keppra. Patient states his seizures are usually stress-induced but he noticed no triggers yesterday that would have caused the seizures to recur. He states he was not under stress yesterday. complaint: seizure Description of Episode: loss of consciousness and tonic-clonic movement Witnessed: Yes - by Bystander Trauma: No Seizure History: Yes Place: correction Possible Precipitating Event: none Associated symptoms: Reports other (myalgias); Deny chest pain, chills, confusion, cough, diaphoresis, fever(s), anorexia, malaise, rash, short of breath, syncope or weakness Treatments prior to arrival: none Review of Systems Const: Denies: fever(s), chills, malaise or diaphoresis Eyes: Denies: change in vision ENMT: Denies: throat pain Card: Denies: chest pain or syncope Resp: Denies: dyspnea or wheezing GI: Denies: abdominal pain, nausea or vomiting : Denies: flank pain Musc: Denies: neck pain or back pain Skin/Breast: Denies: rash or pruritus Neuro: Reports: other (Seizures, no memory of seizures); Denies: confusion Psych: Denies: anxiety or depression Tramaine/Lymph: Denies: enlarged lymph nodes [facility] ED PFSH: Medical History Anxiety and depression Grand mal seizure disorder Rotator cuff arthropathy Schizoaffective disorder Social History Smoking and tobacco status: current every day smoker Alcohol intake: current Alcohol intake frequency: 0-2 Drinks per Day Physical Exam Const: COMMON NORMALS: no acute distress, average body habitus, patient oriented x3, no limitations, healthy appearing, alert and well nourished GENERAL APPEARANCE: cooperative OTHER: Speech is clear. No focal deficits. HENMT: COMMON NORMALS: normocephalic and atraumatic HEAD & SCALP: normocephalic and atraumatic FACE & SINUS: normal facial exam Eye: COMMON NORMALS: EOMs intact bilaterally Neck/C-Spine: COMMON NORMALS: full ROM, no lymphadenopathy, supple and no meningeal signs GENERAL: Yes normal visual inspection Lymph: LYMPHATIC: no lymphadenopathy noted Chest: COMMONS NORMALS: normal inspection of the chest and normal palpation of entire chest wall CHEST: No Ecchymosis present and No rash Resp: COMMON NORMALS: normal respiratory effort, No retractions and clear to auscultation bilaterally EFFORT & INSPECTION: No respiratory distress AUSCULTATION: clear to auscultation bilaterally Cardio: COMMON NORMALS: regular rate, regular rhythm and Peripheral pulses 2+ throughout JUGULAR VENOUS DISTENTION: no JVD RATE: regular rate RHYTHM: regular rhythm PERIPHERAL PULSES: Peripheral pulses 2+ throughout GI: COMMON NORMALS: Normal to inspection, nondistended, normoactive bowel sounds present and non-tender : COMMON NORMALS: Yes no CVA tenderness BLADDER/KIDNEY EXAM: Yes no CVA tenderness Back/Pelvis: COMMON NORMALS: no CVA tenderness Extremity: COMMON NORMALS: normal to inspection, full ROM and capillary refill normal Neuro: COMMON NORMALS: patient oriented x3, CN's II-XII intact bilaterally, moves all extremities, no focal motor deficits, no sensory deficits noted and deep tendon reflexes 2+ bilaterally SENSORIUM/ORIENTATION: Yes alert MENI NGEAL SIGNS: Yes no meningeal signs and No nuccal rigidity Psych: COMMON NORMALS: mental status grossly normal, Normal thought process present, cooperative, normal affect, speech normal and activity/motor behavior normal SPEECH: Yes normal speech THOUGHT PROCESS: Normal thought process present Skin: COMMON NORMALS: no rashes or lesions noted, no wounds, turgor normal and no jaundice GENERAL SKIN EXAM: no rashes or lesions noted and turgor normal Course Vital Signs: Vital signs: Vital Signs Temperature 98.4 F 09/26/21 15:39 Pulse Rate 77 09/26/21 17:46 Respiratory Rate 11 L 09/26/21 17:46 Blood Pressure 136/78 09/26/21 17:46 Pulse Oximetry 96 09/26/21 17:46 MDM - Seizure MDM Narrative: Medical decision making narrative: pt wants to switch to tegretol from depakote. valproic acid level and chem7 are normal. pt wants pain med prior to d/c. Medical Records: Attestation: I reviewed the patient's medical records. Medical records narrative: See previous ER record. Lab Data: Attestation: I reviewed the patient's lab results. Labs: Lab Results 09/26/21 09/26/21 09/26/21 16:39 16:39 16:39 WBC 4.7 10^3/uL 10^3/ uL (4.0-10.0) RBC 4.63 10^6/uL 10^6 /uL (4.1-5.3) Hgb 13.9 g/dL g/dL (11.7-16.6) Hct 42.4 % % (42.0-52.0) MCV 91.6 fl fl (80-94) MCH 30.0 pg pg (28.0-34.0) MCHC 32.8 g/dL g/dL (30.0-36.0) RDW 13.2 % % (12.1-15.1) Plt Count 189 10^3/cmm 10^3 /cmm (130-400) MPV 11.7 fL H fL (7.4-10.4) Neut % (Auto) 49.9 % % Lymph % (Auto) 32.1 % % [place] % (Auto) 14.6 % % Eos % (Auto) 2.6 % % Baso % (Auto) 0.4 % % Neut # (Auto) 2.33 10^3/uL 10^3 /uL (1.8-7.7) Lymph # (Auto) 1.5 10^3/uL 10^3/ uL (0.8-4.8) [place] # (Auto) 0.7 10^3/uL 10^3/ uL (0.2-0.9) Eos # (Auto) 0.1 10^3/uL 10^3/ uL (0.0-0.8) Baso # (Auto) 0.0 10^3/uL 10^3/ uL (0.0-0.1) Nucleated RBC % (a uto) 0 % % Nucleated RBCs # 0.0 /100WBC /100W BC Sodium 144 mmol/L mmol/L (136-145) Potassium 4.1 mmol/L mmol/L (3.5-5.1) Chloride 105 mmol/L mmol/L (98-107) Carbon Dioxide 25 mmol/L mmol/L (22-29) Anion Gap 18.1 (5-19) BUN 11 mg/dL mg/dL (6-20) Creatinine 0.7 mg/dL mg/dL (0.7-1.2) GFR Calculation 162.5 mL/min H mL /min (90-130) Glucose 79 mg/dL mg/dL (65-115) Calculated Osmolal ity 296 mOsm/kg H mOs m/kg (285-295) Calcium 9.1 mg/dL mg/dL (8.5-10.5) Magnesium 2.1 mg/dL mg/dL (1.7-2.3) Total Bilirubin 0.2 mg/dL mg/dL (0.15-1.2) AST 22 U/L U/L (0-40) ALT 13 U/L U/L (0-41) Alkaline Phosphata se 49 IU/L IU/L (40-130) Total Protein 6.9 g/dL g/dL (6.6-8.7) Albumin 4.2 g/dL g/dL (3.5-5.2) Globulin 2.7 g/dL g/dL (1.3-4.6) Valproic Acid 89.1 ug/mL ug/mL (50-100) EKG Data^: EKG 1: Attestation: I personally reviewed and interpreted this EKG as follows: EKG interpretation date: 09/26/21 EKG interpretation time: 16:42 Interpretation: Normal EKG. Normal sinus rhythm with heart rate of 73. Normal axis. Normal ST segment. Normal OK interval. Normal QRS interval. Normal QT interval. Normal axis. Normal T waves. EKG 2: Attestation: I personally reviewed and interpreted this EKG as follows: EKG interpretation date: 09/26/21 EKG interpretation time: 17:30 Prior EKG tracings: available for review (no changes) Interpretation: Normal EKG. Normal sinus rhythm with heart rate 74. Normal axis. Normal ST segments. Normal OK interval. Normal T waves, normal P wave. Normal axis. Unchanged from previous EKG Discharge Plan Discharge Patient Disposition: Home Clinical Impression: Grand mal seizure disorder Condition: Stable Prescriptions: New Tegretol 200 mg tablet 200 mg PO Q12H Qty: 60 RF: 1 No Action Depakote 500 mg tablet,delayed release (DR/EC) 500 mg PO BID Qty: 60 RF: 0 Depakote 500 mg tablet,delayed release (DR/EC) 1,000 mg PO BID Qty: 60 RF: 0 Zyprexa 5 mg tablet 5 mg PO DAILY Qty: 20 RF: 0 diclofenac sodium 75 mg tablet,delayed release (DR/EC) 75 mg PO BID Qty: 20 RF: 0 Discharge Orders: Discharge ED (Routine); Ordered 09/26/21 Ordered By: Je Rice Discharge Diet: Advance as tolerated Discharge Activity: Increase activity as tolerated Patient Instructions: Generalized Tonic Clonic Seizures (ED) Activity Restrictions/Additional Instructions: Discontinue depakote and start tegretol tomorrow morning for seizure prevention. 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
[2021-09-26] MEDS: LORazepam 2 mg/mL INJ 1 mL 1 MG IVP (16:09)
[2021-09-26 17:19] LABS: Basophils % 0.4 %; Eosinophils # 0.1 10^3/uL (0.0-0.8); Eosinophils % 2.6 %; Hematocrit 42.4 % (42.0-52.0); Hemoglobin 13.9 g/dL (11.7-16.6); Lymphocytes # 1.5 10^3/uL (0.8-4.8); Lymphocytes % 32.1 %; Mean Corpuscular HGB Conc 32.8 g/dL (30.0-36.0); Mean Corpuscular Volume 91.6 fl (80-94); Mean Platelet Volume 11.7 fL (7.4-10.4); Monocytes # 0.7 10^3/uL (0.2-0.9); Monocytes % 14.6 %; Neutrophils # 2.33 10^3/uL (1.8-7.7); Neutrophils % 49.9 %; Nucleated Red Blood Cells % 0 %; Platelet Count 189 10^3/cmm (130-400); Red Blood Count 4.63 10^6/uL (4.1-5.3); Red Cell Distribution Width 13.2 % (12.1-15.1); White Blood Count 4.7 10^3/uL (4.0-10.0)
[2021-09-26 17:38] LABS: Alanine Aminotransferase 13 U/L (0-41); Albumin Level 4.2 g/dL (3.5-5.2); Alkaline Phosphatase 49 IU/L (40-130); Anion Gap 18.1 (5-19); Aspartate Amino Transferase 22 U/L (0-40); Blood Urea Nitrogen 11 mg/dL (6-20); Calcium 9.1 mg/dL (8.5-10.5); Carbon Dioxide 25 mmol/L (22-29); Chloride 105 mmol/L (98-107); Globulin 2.7 g/dL (1.3-4.6); Glomerular Filtration Rate 162.5 mL/min (90-130); Glucose 79 mg/dL (65-115); Magnesium 2.1 mg/dL (1.7-2.3); Osmolality Calculated 296 mOsm/kg (285-295); Potassium 4.1 mmol/L (3.5-5.1); Sodium 144 mmol/L (136-145); Total Bilirubin 0.2 mg/dL (0.15-1.2); Total Protein 6.9 g/dL (6.6-8.7)
[2021-09-26 17:46] VITALS: BP 136/78; PULSE 77; RESP 11; O2SAT 96
[2021-09-26 18:07] LABS: Valproic Acid Level 89.1 ug/mL (50-100)
--- NOTE | 2021-09-26 18:19 | ED_ITS ---
HPI - Seizure General: Chief Complaint: Seizure Stated Complaint: SEIZURE Time Seen by Provider: 09/26/21 15:45 Source: patient and EMS Mode of arrival: EMS Limitations: no limitations History of Present Illness: Trauma: No Seizure History: Yes Place: senior care Treatments prior to arrival: none PFSH ED PFSH: Medical History Anxiety and depression Grand mal seizure disorder Rotator cuff arthropathy Schizoaffective disorder Social History Smoking and tobacco status: current every day smoker Alcohol intake: current Alcohol intake frequency: 0-2 Drinks per Day Course Vital Signs: Vital signs: Vital Signs Temperature 98.4 F 09/26/21 15:39 Pulse Rate 77 09/26/21 17:46 Respiratory Rate 11 L 09/26/21 17:46 Blood Pressure 136/78 09/26/21 17:46 Pulse Oximetry 96 09/26/21 17:46 MDM - Seizure Lab Data: Labs: Lab Results 09/26/21 09/26/21 09/26/21 16:39 16:39 16:39 WBC 4.7 10^3/uL 10^3/ uL (4.0-10.0) RBC 4.63 10^6/uL 10^6 /uL (4.1-5.3) Hgb 13.9 g/dL g/dL (11.7-16.6) Hct 42.4 % % (42.0-52.0) MCV 91.6 fl fl (80-94) MCH 30.0 pg pg (28.0-34.0) MCHC 32.8 g/dL g/dL (30.0-36.0) RDW 13.2 % % (12.1-15.1) Plt Count 189 10^3/cmm 10^3 /cmm (130-400) MPV 11.7 fL H fL (7.4-10.4) Neut % (Auto) 49.9 % % Lymph % (Auto) 32.1 % % [place] % (Auto) 14.6 % % Eos % (Auto) 2.6 % % Baso % (Auto) 0.4 % % Neut # (Auto) 2.33 10^3/uL 10^3 /uL (1.8-7.7) Lymph # (Auto) 1.5 10^3/uL 10^3/ uL (0.8-4.8) [place] # (Auto) 0.7 10^3/uL 10^3/ uL (0.2-0.9) Eos # (Auto) 0.1 10^3/uL 10^3/ uL (0.0-0.8) Baso # (Auto) 0.0 10^3/uL 10^3/ uL (0.0-0.1) Nucleated RBC % (a uto) 0 % % Nucleated RBCs # 0.0 /100WBC /100W BC Sodium 144 mmol/L mmol/L (136-145) Potassium 4.1 mmol/L mmol/L (3.5-5.1) Chloride 105 mmol/L mmol/L (98-107) Carbon Dioxide 25 mmol/L mmol/L (22-29) Anion Gap 18.1 (5-19) BUN 11 mg/dL mg/dL (6-20) Creatinine 0.7 mg/dL mg/dL (0.7-1.2) GFR Calculation 162.5 mL/min H mL /min (90-130) Glucose 79 mg/dL mg/dL (65-115) Calculated Osmolal ity 296 mOsm/kg H mOs m/kg (285-295) Calcium 9.1 mg/dL mg/dL (8.5-10.5) Magnesium 2.1 mg/dL mg/dL (1.7-2.3) Total Bilirubin 0.2 mg/dL mg/dL (0.15-1.2) AST 22 U/L U/L (0-40) ALT 13 U/L U/L (0-41) Alkaline Phosphata se 49 IU/L IU/L (40-130) Total Protein 6.9 g/dL g/dL (6.6-8.7) Albumin 4.2 g/dL g/dL (3.5-5.2) Globulin 2.7 g/dL g/dL (1.3-4.6) Valproic Acid 89.1 ug/mL ug/mL (50-100) Discharge Plan Discharge Patient Disposition: Home Clinical Impression: Grand mal seizure disorder Condition: Stable Prescriptions: New Tegretol 200 mg tablet 200 mg PO Q12H Qty: 60 RF: 1 No Action Depakote 500 mg tablet,delayed release (DR/EC) 500 mg PO BID Qty: 60 RF: 0 Depakote 500 mg tablet,delayed release (DR/EC) 1,000 mg PO BID Qty: 60 RF: 0 Zyprexa 5 mg tablet 5 mg PO DAILY Qty: 20 RF: 0 diclofenac sodium 75 mg tablet,delayed release (DR/EC) 75 mg PO BID Qty: 20 RF: 0 Discharge Orders: Discharge ED (Routine); Ordered 09/26/21 Ordered By: Je Rice Discharge Diet: Advance as tolerated Discharge Activity: Increase activity as tolerated Patient Instructions: Generalized Tonic Clonic Seizures (ED) Activity Restrictions/Additional Instructions: Discontinue depakote and start tegretol tomorrow morning for seizure prevention. Coding Level of Care Code ED Credit Administration Officer for Ashley Aguilera
[2021-09-26] MEDS: HYDROcodone-acetaminophen 5-325 mg Tablet 1 TAB PO (18:36)
[2021-09-26] MEDS: carBAMazepine 200 mg Tablet PO (18:36)
[2021-09-26 19:05] VITALS: BP 136/78; PULSE 78; RESP 16; O2SAT 98
== END 2021-09-26 19:08 | disposition home or self-care (01) ==
PROVIDERS: Emergency Provider Family Medicine
DX: G40.802 Other epilepsy, not intractable, without status epilepticus (principal); F17.210 Nicotine dependence, cigarettes, uncomplicated
CPT/HCPCS: 80053; 80164; 83735; 85025; 93005; 96374; 99284; J2060